=== PATIENT | female | born 1955 | race Caucasian/White ===

== ENCOUNTER 2019-12-23 14:23 | Outpatient (REF) | payer MEDICARE, SELFPAY ==
[2019-12-23 19:34] LABS: ALT 31 U/L (14-59); AST 26 U/L (15-37); Albumin 3.9 g/dL (3.4-5.0); Alkaline Phosphatase 73 U/L (46-116); Anion Gap 8.6 mmol/L (3-11); BUN 15 mg/dL (7-18); Bilirubin, Total 0.7 mg/dL (0.2-1.0); CO2 26.4 mmol/L (21.0-32.0); CREATININE 0.89 mg/dL (0.55-1.02); Calcium 9.5 mg/dL (8.5-10.1); Calculated LDL 172 mg/dL (<100); Chloride 106 mmol/L (98-107); Cholesterol 266 mg/dL (<200); Glucose 95 mg/dL (74-106); HDL Cholesterol 81 mg/dL (40-60); Potassium 5.4 mmol/L (3.5-5.1); Sodium 141 mmol/L (136-145); TSH (W/Ref FT4) 1.98 uIU/mL (0.36-3.74); Total Protein 7.3 g/dL (6.4-8.2); Triglyceride 67 mg/dL (<150)
[2019-12-23 20:04] LABS: Hemoglobin A1C 5.1 % (<5.7)
== END 2019-12-23 14:43 ==
LOC: NCHCN 14:23
PROVIDERS: PCP Physician Assistant Medical; Visit Provider Physician Assistant Medical
DX: R63.5 Abnormal weight gain (principal); K21.9 Gastro-esophageal reflux disease without esophagitis; E78.00 Pure hypercholesterolemia, unspecified; R79.89 Other specified abnormal findings of blood chemistry
CPT/HCPCS: 80053; 80061; 83036; 84443

== ENCOUNTER 2019-12-26 03:59 | Outpatient (CLI) | payer MEDICARE, SELFPAY ==
--- NOTE | 2019-12-26 | DI.MAMMO_ITS ---
EXAM: MAMMO SCREENING CLINICAL HISTORY: SCREENING, Z12.39 TECHNIQUE: Mammograms were interpreted according to the usual protocol including computer analysis w [employer] CAD system, tomosynthesis and C-view imaging. COMPARISON: FINDINGS: The breasts are of moderate density with fairly symmetrical distribution of fibroglandular tissue. N o dominant mass or clumped microcalcification is identified breast. The current examination is emerita red with previous examinations including August 2014 and there is question of increased prominence of a focal area of asymmetric density projected in the central posterior portion of right breast on MLO v iew. Additional mammographic views of the right breast are requested to include an MLO spot compress ion view. No other significant change seen. IMPRESSION: Additional mammographic views the right breast requested as described above. Breast ultrasound may b e indicated as well depending on the results of the additional mammographic views. BI-RADS Category 0 - Assessment Incomplete: Need additional imaging evaluation Breast Density - Category B - Scattered areas of fibroglandular density
== END 2019-12-26 04:19 ==
PROVIDERS: PCP Physician Assistant Medical; Visit Provider Physician Assistant Medical
DX: Z12.31 Encounter for screening mammogram for malignant neoplasm of breast (principal); R92.8 Other abnormal and inconclusive findings on diagnostic imaging of breast
CPT/HCPCS: 77063; 77067

== ENCOUNTER 2019-12-31 01:31 | Outpatient (CLI) | payer MEDICARE, SELFPAY ==
--- NOTE | 2019-12-31 | DI.US_ITS ---
EXAM: MG MAMMO SCREEN CALL BACK UNI and U/S breast RT limited CLINICAL HISTORY: F/U MAMMO, INCREASED FOCAL ASYMMETRIC DENSITY CENTRAL POSTERIOR RT BREAST. TECHNIQUE: Craniocaudal and mediolateral oblique Full Field Digital Mammography views of the right b reast with Computer Aided Diagnosis followed by Tomosynthesis and right breast ultrasound. COMPARISON: Previous available for comparison. FINDINGS: Mammography/Tomosynthesis: Masses/Architectural Distortion: None seen. Microcalcifictions: No suspicious pleomorphic-type are seen. Skin Thickening/Nipple Retraction: None. Right breast US: Echotexture: Normal appearance of the glandular tissue. Shadowing: No suspicious foci. Cyst: None. Solid lesions: None seen. Ductal dilation: None. IMPRESSION: 1. No evidence of malignancy is noted. 2. Six-month follow-up examination is recommended for re-evaluation. 3. The findings were discussed with the patient on the date of the examination. BI-RADS Category 3 - 6 month - Probably Benign Finding: Recommend follow-up mammography in 6 months Breast Density - Category B - Scattered areas of fibroglandular density A negative radiographic report should not delay biopsy if a dominant or clinically suspicious mass is present. Up to ten percent of cancers are not identified on mammography. A negative report may reinforce clinical impression. Adenosis and dense breasts may obscure an underlying neoplasm. False positive reports average 6 to 10%. Patient will receive a letter notifying them of these results.
== END 2019-12-31 01:51 ==
PROVIDERS: PCP Physician Assistant Medical; Visit Provider Physician Assistant Medical
DX: Z12.31 Encounter for screening mammogram for malignant neoplasm of breast (principal); N64.89 Other specified disorders of breast; R92.8 Other abnormal and inconclusive findings on diagnostic imaging of breast
CPT/HCPCS: 76642; 77063; 77067

== ENCOUNTER 2020-06-30 02:16 | Outpatient (CLI) | payer OTHER, SELFPAY ==
--- NOTE | 2020-06-30 | DI.MAMMO_ITS ---
EXAM: MG MAMMO DIAGNOSTIC UNI CLINICAL HISTORY: DIAGNOSTIC, 6 MONTH F/U, F/U ABNL MAMMO. TECHNIQUE: Both CC and MLO views of the right breast were performed that we also performed additiona l spot compression view. With 3D Tomosynthesistechnique and utilizing computer aided detection (CAD) . COMPARISON: Prior mammograms dating back to 2012, the most recent being December 2019. Ultrasound Oc 2019 was also reviewed. FINDINGS: Previously described mammographic findings appear unchanged. On 3D spot imaging there does not appea r to be an obvious new discernible nodule. There are no malignant-appearing microcalcification groups. IMPRESSION: Stable benign-appearing findings. No obvious radiographic evidence of malignancy in the right breast . Appropriate follow-up is to keep this patient on a yearly mammogram schedule, this implying the next bilateral mammogram would be in 6 months, with earlier imaging if a self detected breast changes note d. BI-RADS Category 3 - Annual - Resume Annual Screening Breast Density - Category C - Heterogeneously dense Breast density Category C or D implies that the patient has dense breast tissue. Dense breast tissue can make it harder to find cancer on a mammogram. Dense breast tissue is also associated with an incr eased risk of breast cancer. This information about the result of the mammogram report was provided to the patient to raise their awareness. Use this report when you speak with the patient about their risks for breast cancer, which includes their family history. At that time, you may recommend additional screening tests (Ultrasoun d or MRI) as these tests may add significant information. A negative radiographic report should not delay biopsy if a dominant or clinically suspicious mass is present. Up to ten percent of cancers are not identified on mammography. A negative report may reinforce clinical impression. Adenosis and dense breasts may obscure an underlying neoplasm. False positive reports average 6 to 10%. Patient will receive a letter notifying them of these results.
== END 2020-06-30 02:36 ==
PROVIDERS: PCP Physician Assistant Medical; Visit Provider Physician Assistant Medical
DX: Z12.31 Encounter for screening mammogram for malignant neoplasm of breast (principal); R92.8 Other abnormal and inconclusive findings on diagnostic imaging of breast; N64.59 Other signs and symptoms in breast
CPT/HCPCS: 77061; 77065; G0279

== ENCOUNTER → 2020-08-17 01:38 | Outpatient (CLI) | payer OTHER, SELFPAY ==
--- NOTE | 2020-08-17 09:15 | DI.RAD_ITS ---
Exam(s) XR ANKLE RT COMPLETE EXAM: XR ANKLE RT COMPLETE CLINICAL HISTORY: RT ANKLE PAIN, M25.571 TECHNIQUE: COMPARISON: No exams were available for comparison FINDINGS: Three views were obtained. The ankle mortise appears well maintained. There are prominent enthesoph ytes of the Achilles attachment on the calcaneus. No other significant bony abnormality seen. IMPRESSION: RADIATION DOSE DELIVERED: Total DLP
== END ==
PROVIDERS: PCP Physician Assistant Medical; Visit Provider Physician Assistant Medical
DX: M25.571 Pain in right ankle and joints of right foot (principal); M77.51 Other enthesopathy of right foot and ankle
CPT/HCPCS: 73610

== ENCOUNTER → 2020-08-27 02:02 | Outpatient (CLI) | payer OTHER, SELFPAY ==
--- NOTE | 2020-08-27 | DI.US_ITS ---
Exam(s) US PELVIS TRANSVAGINAL EXAM: US PELVIS TRANSVAGINAL CLINICAL HISTORY: PELVIC PAIN, R10.2 TECHNIQUE: Transabdominal and transvaginal imaging was performed using standard protocol. COMPARISON: No exams were available for comparison FINDINGS: the patient is status post hysterectomy. patient is status post left oophorectomy. the right ovary is normal in size. no cyst or mass is seen. there is no free fluid. parapelvic cysts are noted in the right kidney. there is no evidence of hydronephrosis. IMPRESSION: STATUS POST HYSTERECTOMY AND LEFT OOPHORECTOMY. NO MASS OR CYST. DATA REPOSITORY:
== END ==
PROVIDERS: PCP Physician Assistant Medical; Visit Provider Physician Assistant Medical
DX: R10.2 Pelvic and perineal pain (principal); Z90.710 Acquired absence of both cervix and uterus; Z90.721 Acquired absence of ovaries, unilateral
CPT/HCPCS: 76830; 76856

== ENCOUNTER 2020-09-01 03:25 | Outpatient (CLI) | payer OTHER, SELFPAY ==
[2020-09-01 09:31] LABS: Abs Immature Grans 0.03 10^3/uL (0.0-0.06); Absolute Basophil Count 0.02 10^3/uL (0.0-0.2); Absolute Eosinophil Count 0.11 10^3/uL (0.0-0.7); Absolute Lymphocyte Count 1.44 10^3/uL (1.2-3.4); Absolute Monocyte Count 0.41 10^3/uL (0.1-0.8); Basophils % 0.3; Eosinophils % 1.9; HCT 40.9 % (36.0-46.0); HGB 13.8 g/dL (11.2-15.7); Immature Grans % 0.5; Lymphocytes % 24.4; MCH 29.1 pg (27.0-33.0); MCHC 33.7 % (32.0-36.0); MCV 86.1 fL (80-95); MPV 11.5 fL (8.0-11.0); Monocytes % 6.9; Nucleated RBC 0 %; Platelet Count 176 10^3/uL (130-400); RBC 4.75 10^6/uL (3.93-5.22); RDW 13.4 % (11.7-14.6); RDW-SD 41.7 fL; WBC 5.91 10^3/uL (4.4-10.8)
[2020-09-01 10:48] LABS: Anion Gap 9.4 mmol/L (3-11); BUN 17 mg/dL (7-18); CO2 28.6 mmol/L (21.0-32.0); Calcium 9.2 mg/dL (8.5-10.1); Chloride 107 mmol/L (98-107); Estimated GFR 55.64 (mL/min/1.73m2); Glucose 108 mg/dL (74-106); Potassium 4.3 mmol/L (3.5-5.1); Sodium 145 mmol/L (136-145)
== END 2020-09-01 03:26 | disposition home or self-care (01) ==
LOC: LBO 03:25
PROVIDERS: PCP Physician Assistant Medical; Visit Provider Physician Assistant Medical
DX: I10 Essential (primary) hypertension (principal)
CPT/HCPCS: 36415; 80048; 85025

== ENCOUNTER 2021-10-17 14:53 | Outpatient (CLI) | payer MEDICARE, SELFPAY ==
--- NOTE | 2021-10-17 14:45 | DI.RAD_ITS ---
Exam(s) XR KNEE RT 3V AP,LAT,DEISY EXAM: XR KNEE RT 3V AP,LAT,DEISY CLINICAL HISTORY: eval R knee pain, medial TECHNIQUE: COMPARISON: No exams were available for comparison FINDINGS: Three views were obtained. The cartilaginous joint spaces appear fairly well maintained. No joint e ffusion seen on the lateral view. There is a small enthesophyte of the superior aspect of the patell a. No other bony abnormality seen. IMPRESSION: RADIATION DOSE DELIVERED: Total DLP
== END 2021-10-17 14:54 | disposition home or self-care (01) ==
LOC: DIORS 14:53
PROVIDERS: PCP Physician Assistant Medical; Referring Provider Physician Assistant Medical; Visit Provider Student in an Organized Health Care Education/Training Program
DX: M76.891 Other specified enthesopathies of right lower limb, excluding foot; M23.91 Unspecified internal derangement of right knee
CPT/HCPCS: 20610; 73562; 99203; J1040

== ENCOUNTER 2021-11-14 18:57 | Outpatient (REF) | payer MEDICARE, SELFPAY ==
[2021-11-14 18:38] LABS: ALT 31 U/L (14-59); AST 24 U/L (15-37); Albumin 3.7 g/dL (3.4-5.0); Alkaline Phosphatase 48 U/L (46-116); Anion Gap 10.3 mmol/L (3-11); BUN 15 mg/dL (7-18); Bilirubin, Total 0.7 mg/dL (0.2-1.0); CO2 26.7 mmol/L (21.0-32.0); CREATININE 0.8 mg/dL (0.55-1.02); Calcium 8.9 mg/dL (8.5-10.1); Calculated LDL 168 mg/dL (<100); Chloride 106 mmol/L (98-107); Cholesterol 254 mg/dL (<200); Estimated GFR 80.71 (mL/min/1.73m2); Glucose 99 mg/dL (74-106); HDL Cholesterol 75 mg/dL (40-60); Potassium 4.2 mmol/L (3.5-5.1); Sodium 143 mmol/L (136-145); TSH (W/Ref FT4) 1.53 uIU/mL (0.36-3.74); Total Protein 7.2 g/dL (6.4-8.2); Triglyceride 55 mg/dL (<150)
[2021-11-14 19:13] LABS: Hemoglobin A1C 5.3 % (<5.7)
== END 2021-11-14 18:58 | disposition home or self-care (01) ==
LOC: NCHCN 18:57
PROVIDERS: PCP Physician Assistant Medical; Visit Provider Physician Assistant Medical
DX: Z00.8 Encounter for other general examination (principal)
CPT/HCPCS: 80053; 80061; 83036; 84443

== ENCOUNTER 2022-04-06 03:40 | Outpatient (CLI) | payer MEDICARE, SELFPAY ==
--- NOTE | 2022-04-06 | DI.MAMMO_ITS ---
Exam(s) MAMMO SCREENING EXAM: MAMMO SCREENING CLINICAL HISTORY: SCREENING FOR BREAST CANCER Z12.31. TECHNIQUE: Bilateral full field digital CC and MLO mammographic images were obtained with 3D tomosyn thesis and utilizing computer aided detection (CAD). COMPARISON: Prior mammograms were reviewed. FINDINGS: There has been no significant change in the appearance and distribution of the fibroglandular tissue. There are no new spiculated masses nor malignant appearing microcalcification groups. There is no significant architectural distortion nor skin thickening-retraction. IMPRESSION: No radiographic evidence of malignancy. BI-RADS Category 1 - Negative Breast Density - Category B - Scattered areas of fibroglandular density Breast density Category C or D implies that the patient has dense breast tissue. Dense breast tissue can make it harder to find cancer on a mammogram. Dense breast tissue is also associated with an incr eased risk of breast cancer. This information about the result of the mammogram report was provided to the patient to raise their awareness. Use this report when you speak with the patient about their risks for breast cancer, which includes their family history. At that time, you may recommend additional screening tests (Ultrasoun d or MRI) as these tests may add significant information. A negative radiographic report should not delay biopsy if a dominant or clinically suspicious mass is present. Up to ten percent of cancers are not identified on mammography. A negative report may reinforce clinical impression. Adenosis and dense breasts may obscure an underlying neoplasm. False positive reports average 6 to 10%. Patient will receive a letter notifying them of these results.
== END 2022-04-06 04:00 ==
PROVIDERS: PCP Physician Assistant Medical; Visit Provider Physician Assistant Medical
DX: Z12.31 Encounter for screening mammogram for malignant neoplasm of breast (principal)
CPT/HCPCS: 77063; 77067

== ENCOUNTER 2023-07-03 13:31 | Outpatient (REF) | payer MEDICARE, SELFPAY ==
[2023-07-03 16:48] LABS: ALT 21 U/L (14-59); AST 18 U/L (15-37); Albumin 3.8 g/dL (3.4-5.0); Alkaline Phosphatase 51 U/L (46-116); Anion Gap 10.5 mmol/L (3-11); BUN 17 mg/dL (7-18); Bilirubin, Total 0.7 mg/dL (0.2-1.0); CO2 23.5 mmol/L (21.0-32.0); Calculated LDL 150 mg/dL (<100); Chloride 108 mmol/L (98-107); Cholesterol 249 mg/dL (<200); Estimated GFR 61.36 (mL/min/1.73m2); Glucose 100 mg/dL (74-106); HDL Cholesterol 90 mg/dL (40-60); Sodium 142 mmol/L (136-145); Total Protein 7.1 g/dL (6.4-8.2); Triglyceride 48 mg/dL (<150)
[2023-07-03 16:59] LABS: Calcium 9.1 mg/dL (8.5-10.1)
== END 2023-07-03 13:32 | disposition home or self-care (01) ==
LOC: NCHCN 13:31
PROVIDERS: PCP Physician Assistant Medical; Visit Provider Physician Assistant Medical
DX: Z00.00 Encounter for general adult medical examination without abnormal findings (principal)
CPT/HCPCS: 80053; 80061

== ENCOUNTER 2024-01-03 16:06 | Outpatient (REF) | payer MEDICARE, SELFPAY ==
[2024-01-03 17:21] LABS: Calculated LDL 159 mg/dL (<100); Cholesterol 259 mg/dL (<200); HDL Cholesterol 86 mg/dL (40-60); Triglyceride 71 mg/dL (<150)
== END 2024-01-03 16:07 | disposition home or self-care (01) ==
LOC: NCHCN 16:06
PROVIDERS: PCP Physician Assistant Medical; Visit Provider Physician Assistant Medical
DX: E78.5 Hyperlipidemia, unspecified (principal)
CPT/HCPCS: 80061

== ENCOUNTER 2024-04-09 12:53 | Outpatient (REF) | payer MEDICARE, SELFPAY ==
--- OUTSIDE RECORDS SUMMARY | 2024-04-09 13:07 | XMS_ITS | Encounter Summary ---
Author Organization [facility] Address [address] [place] [address] Care Team Providers Care Dredge Operator Name Role Phone Unavailable Primary Care Provider Unavailabl e Encounter Details Date Type Department Care Team (Latest Contact Info) Description 01/28/2013 12:04 EST - 01/28/2013 23:59 EST Hospital Encounter [address] [address] Unknown, Provider, MD Discharge Disposition: Home or Self Care Social History Tobacco Use Types Packs/Day Years Used Date Smoking Tobacco: Never Assessed Comments Unknown Sex and Gender Information Value Date Recorded Sex Assigned at Not on file Legal Sex Female 18:12 EST Gender Identity Not on file Sexual Orientation Not on file documented as of this encounter Discharge Disposition Disposition Code Departure Means Destination Home or Self Group Home documented in this encounter Plan of Treatment Not on file documented as of this encounter Visit Diagnoses Not on filedocumented in this encounter
--- OUTSIDE RECORDS SUMMARY | 2024-04-09 13:07 | XMS_ITS | Referral Summary ---
Author Organization [facility] Address [address] [place] [address] Care Team Providers Care Roll Cutter Name Role Phone Unavailable Primary Care Provider Unavailabl e Social History Tobacco Use Types Packs/Day Years Used Date Smoking Tobacco: Never Assessed Comments Unknown Sex and Gender Information Value Date Recorded Sex Assigned at Not on file Legal Sex Female 18:12 EST Gender Identity Not on file Sexual Orientation Not on file Plan of Treatment Not on file
--- OUTSIDE RECORDS SUMMARY | 2024-04-09 13:07 | XMS_ITS | Encounter Summary ---
Author Organization [facility] Address [address] [place] [address] Care Team Providers Care Barge Master Name Role Phone Unavailable Primary Care Provider Unavailabl e Encounter Details Date Type Department Care Team (Late st Contact Info) Description 01/28/2013 Results Only [facility] Laboratory Services - [facility] [place] [place] [address], [place] [id number] El Barnhart, DO [address] [facility] [address] [place] [address] Social History Tobacco Use Types Packs/Day Years Used Date Smoking Tobacco: Never Assessed Comments Unknown Sex and Gender Information Value Date Recorded Sex Assigned at Not on file Legal Sex Female 18:12 EST Gender Identity Not on file Sexual Orientation Not on file documented as of this encounter Plan of Treatment Not on file documented as of this encounter Procedures Procedure Name Priority Date/Time Associated Diagnosis Comments SURGICAL PATHOLOGY Routine 01/28/2013 21 :13 EST documented in this encounter Results * SURGICAL PATHOLOGY (01/28/2013 21:13 EST) Pathology Report: SURGICAL PATHOLOGY REPORT Reports generated via electronic interface contain original data; however they are lacking the format of the original report. Caution should be taken when reading/interpreti ng unformatted reports. Name: ? PATI CHAVIS ? Accession #: ? [id number] ? : ? 1955 (Age: 57) ??F ? Collect Date: ? 01/28/2013 ? Location: ? [facility] ? Receive Date: ? 01/28/2013 ? Provider: EL BARNHART DO Copy to: LUIS SALCIDO MD ? Final Pathologic Diagnosis: A. COLON, CECUM, POLYP, BIOPSY: - ??Fragments of tubular adenoma. B. RECTUM, POLYP, BIOPSY: - ??Fragments of tubular adenoma. ??See comment. Comment: Deeper sections examined (B). Dr. rPuett 01/31/2013 11:37 AM Document reviewed and electronically signed by: CATALINA DAVIS MD Report ??Date: 02/01/2013 13:01 By the signature above, the attending physician certifies that he/she has personally conducted a gross and/or microscopic examination of the described specimens and rendered or confirmed the above diagnosis. Specimen(s) Received: A. ??Cecal polyp (#1) B. ??Rectal polyp (#2) Clinical History: Screening for colon cancer Gross Description: A. ?Received in formalin labelled with proper patient identification (initials P, C) and cecal polyp are three light pineda tissue fragments (0.2 x 0.2 x 0.2 cm to 0.3 x 0.2 x 0.2 cm). Entirely submitted in block A1. B. ?Received in formalin labelled with proper patient identification (initials P, C) and rectal polyp are two light pineda tissue fragments (0.2 x 0.2 x 0.2 cm and 0.3 x 0.3 x 0.2 cm). Entirely submitted in block B1. Laura Pierce 01/29/2013 09:24 AM End of Report [facility] 01/28/2013 21:1 3 EST 01/28/2013 21:13 EST us El Barnhart DO PATHOLOGY ORDERABLES Fi nal Result [facility] [address] [place] [address] documented in this encounter Visit Diagnoses Not on filedocumented in this encounter
--- OUTSIDE RECORDS SUMMARY | 2024-04-09 13:07 | XMS_ITS | Clinical Summary ---
Author Organization [facility] Address [address] [place] [address] Care Team Providers Care Head Transfer Clerk Name Role Phone Unavailable Primary Care Provider Unavailabl e Social History Tobacco Use Types Packs/Day Years Used Date Smoking Tobacco: Never Assessed Comments Unknown Sex and Gender Information Value Date Recorded Sex Assigned at Not on file Legal Sex Female 18:12 EST Gender Identity Not on file Sexual Orientation Not on file Plan of Treatment Health Maintenance Due Date Last Done Comments Hepatitis C Screen 1955 Fall Risk Screening 11/15/2019 COVID-19 Vaccine (2023- season) 2023 RSV Immunization ( o r 60+ Years) (1 - 1-dose 75+ series) 2029
[2024-04-09 16:04] LABS: ALT 46 U/L (14-59); AST 24 U/L (15-37); Albumin 3.6 g/dL (3.4-5.0); Alkaline Phosphatase 81 U/L (46-116); Anion Gap 7.5 mmol/L (3-11); BUN 13 mg/dL (7-18); Bilirubin, Total 0.73 mg/dL (0.2-1.0); CO2 29.5 mmol/L (21.0-32.0); Calcium 9.2 mg/dL (8.5-10.1); Chloride 107 mmol/L (98-107); Creatine Kinase 46 U/L (26-192); Estimated GFR 60.98 (mL/min/1.73m2); Glucose 99 mg/dL (74-106); Potassium 4.1 mmol/L (3.5-5.1); Sodium 144 mmol/L (136-145); Total Protein 6.6 g/dL (6.4-8.2)
== END 2024-04-09 12:54 | disposition home or self-care (01) ==
LOC: NCHCN 12:53
PROVIDERS: PCP Physician Assistant Medical; Visit Provider Physician Assistant Medical
DX: E78.5 Hyperlipidemia, unspecified (principal)
CPT/HCPCS: 80053; 82550

== ENCOUNTER 2024-04-29 13:05 | Outpatient (REF) | payer MEDICARE, SELFPAY ==
[2024-04-29 15:21] LABS: Calculated LDL 114 mg/dL (<100); Cholesterol 209 mg/dL (<200); HDL Cholesterol 81 mg/dL (40-60); Triglyceride 71 mg/dL (<150)
== END 2024-04-29 13:06 | disposition home or self-care (01) ==
LOC: NCHCN 13:05
PROVIDERS: PCP Physician Assistant Medical; Visit Provider Physician Assistant Medical
DX: E78.5 Hyperlipidemia, unspecified (principal)
CPT/HCPCS: 80061

== ENCOUNTER → 2024-06-24 08:12 | Outpatient (BNVA) | payer MEDICARE, SELFPAY | PROVIDERS: PCP Physician Assistant Medical; Referring Provider Physician Assistant Medical; Visit Provider Psychiatry & Neurology Neurology | DX: G25.0 Essential tremor (principal); I10 Essential (primary) hypertension; R73.03 Prediabetes | CPT/HCPCS: 99214 ==

== ENCOUNTER 2025-01-07 01:24 | Outpatient (CLI) | payer MEDICARE, SELFPAY ==
--- NOTE | 2025-01-07 | DI.DEXA_ITS ---
Exam(s) XR DEXA BONE DENSITY W/WO DELFINO EXAM: XR DEXA BONE DENSITY W/WO DELFINO CLINICAL HISTORY: ASYMPTOMATIC MENOPAUSAL STATE Z78.0,screening for osteoporosis TECHNIQUE: COMPARISON: DX DEXA BONE DENSITY WITH DELFINO from 12/10/2012 FINDINGS: Lateral Spine Image: Unremarkable. No compression deformities identified. Left hip: Total T-Score: 0.0. This compares to 0.3 on the prior examination. Total Z-Score: 1.5 T- and Z-scores: There is no evidence of osteoporosis. Lumbar Spine: Total T-Score: 2.0. This compares to 0.6 on the prior examination. Total Z-Score: 4.1 T- and Z-scores: Within normal limits. IMPRESSION: No evidence of osteoporosis.
--- NOTE | 2025-01-07 08:21 | DI.MAMMO_ITS ---
Exam(s) MAMMO SCREENING EXAM: MAMMO SCREENING CLINICAL HISTORY: SCREENING MAMMO Z12.31 TECHNIQUE: Bilateral full field digital CC and MLO mammographic images were obtained with 3D tomosynthesis and utilizing computer aided detection (CAD). COMPARISON: Comparison is made with prior examinations. FINDINGS: Masses/Architectural Distortion: No suspicious masses or areas of architectural distortion are present. Microcalcifications: No suspicious pleomorphic-type are seen. Skin Thickening/Nipple Retraction: None. IMPRESSION: 1. No significant interval change with no specific features of malignancy noted. 2. Unless there is more urgent need, screening mammography is recommended, as per [employer] guidelines. BI-RADS Category 1 - Negative Breast Density - Category B - There are scattered areas of fibroglandular density. Breast density Category C or D implies that the patient has dense breast tissue. Dense breast tissue can make it harder to find cancer on a mammogram. Dense breast tissue is also associated with an increased risk of breast cancer. This information about the result of the mammogram report was provided to the patient to raise their awareness. Use this report when you speak with the patient about their risks for breast cancer, which includes their family history. At that time, you may recommend additional screening tests (Ultrasound or MRI) as these tests may add significant information. A negative radiographic report should not delay biopsy if a dominant or clinically suspicious mass is present. Up to ten percent of cancers are not identified on mammography. A negative report may reinforce clinical impression. Adenosis and dense breasts may obscure an underlying neoplasm. False positive reports average 6 to 10%. Patient will receive a letter notifying them of these results.
== END 2025-01-07 01:44 ==
LOC: DI 01:24
PROVIDERS: PCP Physician Assistant Medical; Visit Provider Physician Assistant Medical
DX: Z12.31 Encounter for screening mammogram for malignant neoplasm of breast (principal); Z78.0 Asymptomatic menopausal state; Z13.820 Encounter for screening for osteoporosis
CPT/HCPCS: 77063; 77067; 77080

== ENCOUNTER → 2025-01-08 10:36 | Outpatient (BNVA) | payer MEDICARE, SELFPAY | PROVIDERS: PCP Physician Assistant Medical; Referring Provider Physician Assistant Medical; Visit Provider Physical Therapy Assistant | DX: Z12.11 Encounter for screening for malignant neoplasm of colon (principal); Z86.0101 Personal history of adenomatous and serrated colon polyps | CPT/HCPCS: S0285 ==

== ENCOUNTER 2025-01-21 09:50 | Day surgery (SDC) | payer MEDICARE, SELFPAY ==
[2025-01-21 10:24] VITALS: BP 134/98; PULSE 90; RESP 18; TEMP 36.2; O2SAT 99
[2025-01-21] MEDS: Lactated Ringers 1,000 ML 80 ML IV (10:42)
--- NOTE | 2025-01-21 11:14 | W.ANESPRE ---
General Info Date of Service Date Performed: 01/21/25 Height: 5 ft 5 in Weight: 80.1 kg Body Mass Index (BMI): 29.3 Surgical Procedure: Operation Date: 01/21/25 11:20 Proposed Procedure Side Surgeon ulysses Stewart MD Meds Allergies and Home Medications Allergies Allergy/AdvReac Type Severity Reaction Status Date / Time No Known Allergies Allergy Verified 01/21/25 10:31 Home Medication Medication Instructions Recorded ibuprofen 200 mg tablet (Advil) 600 mg PO Q6H PRN 01/18/22 atorvastatin 10 mg tablet 10 mg PO DAILY 01/08/24 bisacodyl 5 mg tablet,delayed 5 mg PO ONCE #4 tabs 01/08/25 release (Dulcolax (bisacodyl)) polyethylene glycol 3350 17 17 g PO ONCE #238 grams 01/08/25 gram/dose oral powder amitriptyline 10 mg tablet 10 mg PO DAILY 01/21/25 pantoprazole 40 mg tablet,delayed 40 mg PO DAILY 01/21/25 release Current Visit Medications: Current Medications Generic Name Dose Route Start Last Admin Trade Name Justinq PRN Reason Stop Dose Admin Ringer's Solution 1,000 mls @ 80 mls/hr 01/21/25 06:00 01/21/25 10:42 IV 01/21/25 23:59 80 mls/hr INFUSION SUKHDEV Administration IV Miscellaneous Supplies 1 each 01/21/25 06:00 Iv Access IV 01/21/25 23:59 DIRECTED SUKHDEV Sodium Chloride 0 ml 01/21/25 06:00 Normal Saline Flush 10 Ml Syr IV 01/21/25 23:59 PRN PRN Sodium Chloride 0 ml 01/21/25 06:00 Normal Saline 10 Ml Vial IJ 01/21/25 23:59 DIRECTED PRN Sterile Water 0 ml 01/21/25 06:00 Water,Injection,Sterile 10 Ml Vial IJ 01/21/25 23:59 DIRECTED PRN PFSH Active Problems Active Problems: Problem Status Onset Code Essential tremor Acute G25.0 Benign skin lesion of forehead Acute L98.9 Ageusia Acute R43.2 Anosmia Acute R43.0 Disorder of the skin and subcutaneous tissue, unspecified Acute L98.9 GERD (gastroesophageal reflux disease) Chronic K21.9 Hypertension Chronic I10 Right ear impacted cerumen Acute H61.21 Interstitial cystitis Acute N30.10 Obesity Chronic E66.9 Internal derangement of right knee Acute M23.91 Right knee pain Acute M25.561 Medical History Medical History Pre-diabetes Endometriosis Hyperlipidemia Arthralgia Acquired absence of ovary Chronic interstitial cystitis Essential hypertension Benign neoplasm of colon Sensorineural hearing loss (SNHL) of both ears H/O adenomatous polyp of colon Dysuria Snoring Abnormal mammogram of right breast Ankle pain, right Surgical History Surgical History Hx of colonoscopy Absence of both cervix and uterus, acquired History of laparoscopic-assisted vaginal hysterectomy History of unilateral oophorectomy Tobacco Smoking/Tobacco Use Status: Never Alcohol Alcohol Intake: current Alcohol intake frequency: holidays/special occasions only Alcohol type: wine Substance Use Substance use: Never Substance use type: does not use Vital Signs and Lab Results Vital Signs Most Recent Vital Signs in EMR: Most Recent Vital Signs Temp Pulse Resp BP Pulse Ox 36.2 C L 90 18 134/98 H 99 01/21/25 10:24 01/21/25 10:24 01/21/25 10:24 01/21/25 10:24 01/21/25 10:24 Anesthesia Assessment and Plan Anesthesia History Personal History: No History of Anesthesia Complications Family History: No Family History of Anesthesia Complications Exercise Tolerance Exercise Tolerance: Metabolic Equivalents>4 Pertinent Negatives Pertinent Negatives: No Major Cardiovascular Symptoms or Complaints, No Major Pulmonary Symptoms or Complaints and No History of CVA/TIA Cardiac & Pulmonary Exam Cardiac Exam: Normal S1/S2 Heart Sounds Pulmonary Exam: Clear Bilateral Breath Sounds Implantable Cardiac Device Does patient have a Pacemaker or an ICD?: No Airway Exam Known Difficult Airway: No Mallampati Class: 3 Mouth Opening: Normal (> 3cm) Thyromental Distance: Greater than 3 cm Neck Range of Motion: Full ROM Neck Circumference: Normal Teeth Condition: Normal Dentition ASA Classification ASA Score: ASA 2 Emergency Case?: No NPO Status NPO Status: NPO Clears >2 hours, Solids >8 hours Anesthesia Plan Resuscitation Status: Full Code Anesthesia Technique: General Anesthesia Airway Planned: Natural Airway Monitors Used: Standard Monitors Preoperative Comments:: Patient reports stopping Pantoprazole months ago due to lack of GERD symptoms. Recently refilled but has not restarted medication. Does report feeling full today, denies any GERD symptoms.
[2025-01-21 11:39] VITALS: BMI 29.3
--- NOTE | 2025-01-21 12:33 | BOWEL_PTH ---
PATIENT: Pati Chavis LOC: [facility] U#:[id number] AGE/SX: 69/F ROOM: RE01/21/[address]: Arielle Stewart : 1955 BED: DIS: 01/21/2025 SPEC #: [id number] RECD: 01/21/25 13:02 STATUS: MAIKOL RELoni #: [id number] NGOC: 01/21/25 12:[address]: Arielle Stewart DEPT: Surgical Specimen RECD BY: Bria Foster ENTERED: 01/21/25 13:03 SP TYPE: Bowel OTHR DR: Emanuel Lr Tissues: 1 - BIOPSY BOWEL Procedures: GROSS AND MICRO LEVEL 4 Comments: [id number]
[2025-01-21 12:41] VITALS: BP 118/74; PULSE 73; RESP 18; TEMP 36.1; O2SAT 95
--- NOTE | 2025-01-21 12:43 | W.PM.DSUDISC ---
Date of service: 01/21/25 Discharge Plan Disposition Patient Disposition: Home Condition: Good Discharge Details Reason For Visit: Screening colonoscopy Attending Provider: Arielle Stewart Primary Care Provider: Emanuel Lr Recommendations for Follow Up Recommended tests to be ordered by follow up provider: Follow up pathology Home Meds and New Rx's Prescriptions: Continued ibuprofen [Advil] 200 mg tablet 600 mg PO Q6H PRN atorvastatin 10 mg tablet 10 mg PO DAILY amitriptyline 10 mg tablet 10 mg PO DAILY Patient Comments: TAKE ONE TO TWO TABLETS BY MOUTH AT BEDTIME pantoprazole 40 mg tablet,delayed release (DR/EC) 40 mg PO DAILY Patient Comments: TAKE ONE TABLET BY MOUTH EVERY DAY NEEDED Discontinued bisacodyl [Dulcolax (bisacodyl)] 5 mg tablet,delayed release (DR/EC) 5 mg PO ONCE Qty: 4 0RF Rx Instructions: Take per colonoscopy instructions provided by ordering providers office polyethylene glycol 3350 17 gram/dose powder 17 g PO ONCE Qty: 238 0RF Rx Instructions: Take per colonoscopy instructions provided by ordering providers office Discharge Instructions Instructions: Diverticulosis Additional Instructions: Your colonoscopy went well today. You had one polyp that was identified and removed. Once we received the pathology results back from this polyp we will contact you regarding recommendations for another colonoscopy. Please contact the general surgery office if you have any questions or concerns. 1. If tolerated, consume a soft, low fiber diet for 1-2 days. 2[address] Do not drive, drink alcohol, operate machinery, make critical decisions, or do activities that require coordination or balance for 24 hours. 3. Because air was put into your colon during the procedure, expelling air from your rectum (passing gas or farting) is normal. 4. You may not have a bowel movement for 1-3 days because of the colonoscopy prep. This is normal. 5. Go directly to the emergency room if you notice any of the following: Develop chills (warm to touch), or if you have a thermometer and your temperature is above 101 Difficulty breathing or difficultly swallowing Persistent vomiting Severe abdominal pain, other than gas cramps Severe chest pain Black, tarry stools Any bleeding – exceeding one tablespoon 6. Call your physician if the site where your intravenous was started becomes red, swollen, painful, and warm to touch. 7. Your physician has reviewed your pre-procedure medications. Please continue to take those medications as previously ordered. You will be given specific information/education regarding any changes to your medications before leaving. Stand Alone Forms: Portal Information Activity:: Activity as Tolerated Diet:: As Tolerated Discharge Orders Discharge Orders: Discharge Order (Routine); Ordered 01/21/25 Ordered By: Arielle Stewart
--- NOTE | 2025-01-21 12:46 | W.ANESPOSTOP ---
Postoperative Evaluation Date, Time and Location Date Performed: 01/21/25 Time Performed: 12:46 Patient Location: Day Surgery Unit Vital Signs Most Recent Imported Vital Signs: Most Recent Vital Signs Temp Pulse Resp BP Pulse Ox 36.1 C L 73 18 118/74 95 01/21/25 12:41 01/21/25 12:41 01/21/25 12:41 01/21/25 12:41 01/21/25 12:41 Assessment Mental Status: Arousable with meaningful communication Airway and Respiratory Function: Patent airway with normal (patient baseline) respiratory exam Cardiovascular Function: Hemodynamically Stable Hydration Status: Adequately Hydrated Nausea & Vomiting: No Nausea or Vomiting Pain: Pt. Denies Any Pain Peripheral Nerve Block: Patient did not receive a nerve block
--- NOTE | 2025-01-21 12:47 | COLE_ITS ---
Date of service: 01/21/25 Time of Service: 12:47 Colonoscopy Report Date of procedure: 01/21/25 Pre-op diagnosis general: Screening colonoscopy, history of polyps Post-op diagnosis procedure note: same Procedure: Colonoscopy with polypectomy Surgeon: Arielle Stewart Anesthesia Type: General:No Airway Estimated blood loss (mL): 1 Pathology: other (Polyp at 30cm ) Complications: None Disposition: PACU Indications: Patient is a 69 yo female who presents for a screening colonoscopy. She has had colon polyps previously but denies any changes in bowel habits. Prep: Miralax/Dulcolax Procedure Start Time: 12:17 Procedure End Time: 12:37 Retraction Time: 12 Findings: Evidence of small polyp at 30cm removed with cold biopsy forceps. Diverticulosis of the rectosigmoid colon. Procedure Description: The patient was brought to the endoscopy suite and placed in the left lateral decubitus position. After induction of IV sedation, a digital rectal exam was performed. Digital exam was normal. The colonoscope was then passed to the cecum without difficulty. Cecal intubation was confirmed by the identification of the appendiceal orifice and the ileocecal valve. Upon withdrawing the colonoscope, all mucosal surfaces were inspected. The prep was noted to be adequate. At 30cm there was a small polyp, which was removed using cold forceps in its entirety. Specimen was retrieved for pathological analysis. There was no other evidence of mucosal abnormality, polyp or cancer. There was evidence of diverticulosis of the rectosigmoid colon. Retroflexion in the rectum was unremarkable. The patient tolerated the procedure well with no complications. Postoperatively, the patient was transferred to the recovery room in stable condition. [place] Bowel Prep [place] Bowel Prep Right Colon: 3 Left Colon: 3 Transverse Colon: 3 Total Score: 9
[2025-01-21 13:07] VITALS: BP 146/93; PULSE 65; RESP 16; TEMP 36.2; O2SAT 99
== END 2025-01-21 13:20 | disposition home or self-care (01) ==
PROVIDERS: PCP Physician Assistant Medical; Visit Provider Student in an Organized Health Care Education/Training Program
PROC: 0DJD8ZZ Inspection of Lower Intestinal Tract, Via Natural or Artificial Opening Endoscopic (ICD-10-PCS; CPT 45378; principal; 2025-01-21 11:15)
DX: Z12.11 Encounter for screening for malignant neoplasm of colon (principal); D12.5 Benign neoplasm of sigmoid colon; K57.30 Diverticulosis of large intestine without perforation or abscess without bleeding
CPT/HCPCS: 45380; 88305; J2003; J2704